=== PATIENT | female | born 1985 | race Caucasian/White ===

== ENCOUNTER 2017-08-06 00:23 | Emergency (ER) | payer MEDICAID ==
[2017-08-06 00:56] VITALS: TEMP 98.6
--- NOTE | 2017-08-06 00:58 | ED.PDOC ---
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 Abdominal Pain Onset Location: RUQ, RLQ, other - see hpi Pain Radiation: no radiation Quality: intermittent, sharpness Timing/Duration: other - 5 days Improving Factors: nothing Worsening Factors: nothing Associated Symptoms: other - see hpi Review of Systems - Review of Systems Constitutional: States: no symptoms reported EENTM: States: no symptoms reported Respiratory: States: no symptoms reported Cardiology: States: see HPI Gastrointestinal/Abdominal: States: see HPI Genitourinary: States: no symptoms reported Musculoskeletal: States: no symptoms reported All other Systems: Reviewed and Negative, No Change from Baseline Past Medical History (General) - Patient Medical History Surgical History: other - partial pancreatectomy/splenectomy - Vaccination History Hx Tetanus, Diphtheria Vaccination: Yes Hx Influenza Vaccination: Yes Hx Pneumococcal Vaccination: Yes Immunizations Up to Date: Yes - Social History Hx Alcohol Use: No Hx Substance Use: No Hx Physical Abuse: No Hx Emotional Abuse: No - Activities of Daily Living Patient Lives Alone: No - Female History Patient is a Female of Child Bearing Age (10 -59 yrs old): Yes Hx Last Menstrual Period: 07/22/17 Patient : No Family Medical History - Family History Mother Family History: Unknown Hx Family Cancer: Yes - grandma-breast Hx Family;Other: mom-fibromyalgia,lupus Physical Exam - Physical Exam General Appearance: Alert, Comfortable, No apparent distress Eyes, Ears, Nose, Throat Exam: normal ENT inspection Neck: non-tender, supple Respiratory: chest non-tender, lungs clear, normal breath sounds Cardiovascular/Chest: normal peripheral pulses, regular rate, rhythm, no murmur Peripheral Pulses: No deficit Gastrointestinal/Abdominal: normal bowel sounds, soft, no organomegaly, tenderness - right side abdomen no peritoneal signs Back Exam: no CVA tenderness, no vertebral tenderness Extremity: non-tender, normal inspection, no pedal edema, no calf tenderness Neurologic: alert, oriented x 3 Skin Exam: normal color, warm/dry Progress - Progress Progress: 08/06/17 01:05 Vital Signs - 8 hr 08/06/17 00:30 Temperature 98.6 F Pulse Rate [ 76 monitor] Respiratory 16 Rate Blood Pressure 110/67 [Left Arm] O2 Sat by Pulse 99 Oximetry - Results/Orders Results/Orders: 08/06/17 00:59 IV Care:Saline Lock per Protoc QSHIFT 08/06/17 01:00 EKG STAT Laboratory Results - last 24 hr 08/06/17 08/06/17 08/06/17 00:59 01:20 01:22 WBC 13.5 H RBC 4.80 Hgb 13.3 Hct 40.3 MCV 83.8 MCH 27.7 MCHC 33.1 RDW 15.0 H Plt Count 615 H MPV 8.5 Absolute Neuts (auto) 7.30 H Absolute Lymphs (auto) 4.20 H Absolute Monos (auto) 1.70 H Absolute Eos (auto) 0.20 Absolute Basos (auto) 0.10 Neutrophils % 53.9 Lymphocytes % 31.5 Monocytes % 12.3 H Eosinophils % 1.6 Basophils % 0.7 PT 11.6 INR 1.000 PTT (SP) 31.3 Sodium 140 Potassium 3.8 Chloride 107 Carbon Dioxide 25 Anion Gap 11.8 L BUN 11 Creatinine 0.61 BUN/Creatinine Ratio 18.0 Random Glucose 95 Serum Osmolality 278.6 Calcium 9.3 Magnesium 2.0 Total Bilirubin 0.6 Direct Bilirubin 0.1 Indirect Bilirubin 0.5 AST 15 ALT 15 Alkaline Phosphatase 94 Creatine Kinase 51 CK-MB (CK-2) 0.9 CK-MB (CK-2) % Not Reportable Troponin I < 0.02 Serum Total Protein 7.8 Albumin 4.0 Urine Color Yellow Urine Appearance Clear Urine pH 5.5 Ur Specific [place] >= 1.030 Urine Protein Negative Urine Glucose (UA) Negative Urine Ketones Negative Urine Blood Negative Urine Nitrite Negative Urine Bilirubin Negative Urine Urobilinogen 0.2 Ur Leukocyte Esterase Negative Urine RBC 0 Urine WBC 1-3 Ur Epithelial Cells 3-5 Urine Bacteria Rare Urine HCG, Qual Negative - EKG/XRAY/CT EKG: Sinus, no ST T wave changes Comments: HR-72;NSR normal ecg XRAY: chest - no acute abnormalities CT Ordered: Yes - abd/p-no acute findings Departure - Departure Clinical Impression: Palpitation Abdominal pain Qualifiers: Abdominal location: upper abdomen, unspecified Qualified Code(s): R10.10 - Upper abdominal pain, unspecified Chest pain Qualifiers: Chest pain type: unspecified Qualified Code(s): R07.9 - Chest pain, unspecified Time of Disposition: 02:42 Disposition: Discharge to Home or Self Care Condition: Good Departure Forms: ED Discharge - Pt. Copy, Patient Portal Self Enrollment Instructions: DI for Abdominal Pain-Adult, DI for Palpitations, DI for Atypical Chest Pain Additional Instructions: Follow up with your primary Md call for appointment 06 August 2017;Return to ER as needed
[2017-08-06] MEDS: SODIUM CHLORIDE 0.9% 500ML 500 ML IVS ONE (01:26)
[2017-08-06] MEDS: LACTATED RINGERS 1,000 ML IVS ONE ×2 (01:26→01:27)
--- NOTE | 2017-08-06 02:30 | RAD ---
Chest 2 view on 08/06/2017 CLINICAL INDICATION: Chest pain COMPARISON: None FINDINGS: The lungs are clear. Cardiac, hilar and mediastinal contours are within normal limits. Pulmonary vascularity is within normal limits. No bony abnormality is noted. IMPRESSION: No active disease. Electronically signed by: Saurabh Hodges 08/06/2017 2:29 AM CDT
--- NOTE | 2017-08-06 02:31 | CT ---
EXAM: CT abdomen and pelvis without contrast. INDICATION: Abdominal pain, acute. TECHNIQUE: Contiguous axial CT images of the abdomen and pelvis. Intravenous contrast: Absent. Oral contrast: Absent. DLP 1203 mGy-cm. This exam was performed according to our departmental dose-optimization program, which includes automated exposure control, adjustment of the mA and/or kV according to patient size and/or use of iterative reconstruction technique. COMPARISON: None. FINDINGS: Lower chest: Partially imaged. Lung bases: Unremarkable. Cardiac apex: Unremarkable. Solid abdominal viscera: Limited by lack of intravenous contrast. Liver: Unremarkable. Gallbladder: Unremarkable. Pancreas: Partial pancreatectomy. No definite peripancreatic inflammatory changes or peripancreatic fluid collections. Spleen: Splenectomy Adrenal glands: Unremarkable. Right kidney: No urolithiasis or hydronephrosis. Left kidney: No urolithiasis or hydronephrosis. Urinary bladder: Unremarkable. Abdominal aorta: Unremarkable. Peritoneal: Free fluid: None. Free air: None. Other: No pathologic sized lymph nodes in the upper abdomen. Bowel: Stomach: Unremarkable. Small bowel: Unremarkable. Appendix: Not uniquely identified Colon: Unremarkable. Rectum: Unremarkable. Uterus: Retroverted Bones: Unremarkable. IMPRESSION: No acute findings. Changes of a partial pancreatectomy and splenectomy with no unexpected postoperative finding. Electronically signed by: Lawrence Saravia MD 08/06/2017 2:30 AM CDT Workstation: [id number]
[2017-08-06] MEDS: HYDROCOD/APAP 5/325 (ER DISP) #3 TAB PO ONE (02:51)
[2017-08-06] MEDS: HYDROcodone 10MG/APAP 325MG 1 EA TAB PO ONE (02:51)
[2017-08-06 02:57] VITALS: BP 108/56; O2SAT 100
== END 2017-08-06 02:58 | disposition home or self-care (01) ==
LOC: ER 00:23
DX: R10.10 Upper abdominal pain, unspecified (principal); R00.2 Palpitations; R07.9 Chest pain, unspecified
CPT/HCPCS: 36415; 71046; 74176; 80048; 80076; 81001; 81025; 82550; 82553; 84484; 85025; 85610; 85730; 93005; J7120

== ENCOUNTER → 2017-10-01 | Outpatient (CLI) | payer MEDICAID, OTHER ==
--- NOTE | 2017-10-01 14:45 | CT ---
EXAM DESCRIPTION: Abdomen/Pelvis w/wo Contrast (accession [id number]), Chest w/wo Contrast (accession [id number]) CLINICAL HISTORY: 31 years Female, BENIGN NEOPLASM OF PANCREAS COMPARISON: CT abdomen and pelvis dated 08/06/2017 TECHNIQUE: Contiguous 3 mm axial images were obtained from the lung apices to the level of the proximal femora before andafter the administration of intravenous and oral contrast. Sagittal and coronal reconstructions were reviewed. FINDINGS: THORAX: 7.5 mm hypodense nodule is noted in the right thyroid lobe. Otherwise, the thyroid gland and supraclavicular region appear normal. No evidence of abnormally enlarged mediastinal, hilar or axillary lymphadenopathy. Trachea is midline and the central tracheobronchial tree is patent. The lungs are clear with no acute consolidation or hyperinflation. No nodules or masses are visualized. No evidence of pleural effusions. The heart is normal in size with no pericardial effusion. The visualized aorta is nonaneurysmal with no significant atherosclerosis. The superior vena cava is normal in size and caliber.No significant coronary artery atherosclerosis. The esophagus appears normal throughout its visualized length. LIVER: The liver demonstrates normal size and density with no intrahepatic biliary ductal dilatation or focal masses. GALLBLADDER: Grossly unremarkable. PANCREAS: Changes of distal pancreatectomy are noted. SPLEEN: Surgically absent ADRENAL GLANDS: Normal with no nodules or masses. KIDNEYS: Both kidneys enhance symmetrically with no hydronephrosis or nephrolithiasis or perinephric fluid collections. No focal masses are identified. The visualized ureters appear grossly unremarkable. STOMACH: The stomach is not well-distended . SMALL BOWEL: The small bowel loops demonstrate variable degrees of distention with no abnormal dilatation or other signs to suggest bowel obstruction. LARGE BOWEL: Mild constipation No evidence of free intraperitoneal air or fluid. RETROPERITONEUM: The abdominal aorta is nonaneurysmal with no significant atherosclerosis. The inferior vena cava is normal in size and caliber. No abnormally enlarged retroperitoneal lymph nodes are identified. URINARY BLADDER:The urinary bladder is well-distended with no gross abnormality. The uterus is retroflexed. Bilateral adnexa appear normal. ADDITIONAL FINDINGS: None. BONES: No degenerative changes are identified in the visualized bones.No evidence of osteophytic or osteoblastic lesions. IMPRESSION: Changes of distal pancreatectomy and splenectomy are noted. 7.5 mm hypodense nodule is seen in the right thyroid lobe. This exam was performed according to our departmental dose-optimization program, which includes automated exposure control, adjustment of the mA and/or kV according to patient size and/or use of iterative reconstruction technique. Electronically signed by: Efrain Armas MD 10/01/2017 2:44 PM CDT
== END ==
LOC: CT 09:16
PROVIDERS: ATTEND Internal Medicine Hematology & Oncology
DX: J45.909 Unspecified asthma, uncomplicated (principal); D13.6 Benign neoplasm of pancreas; E04.1 Nontoxic single thyroid nodule

== ENCOUNTER 2018-04-16 14:36 | Emergency (ER) | payer MEDICAID, OTHER ==
[2018-04-16 14:55] VITALS: TEMP 97.2
--- NOTE | 2018-04-16 15:20 | RAD ---
EXAM DESCRIPTION: Chest,1 View CLINICAL HISTORY: 32 years Female, near syncope COMPARISON: Previous study August 06, 2017 TECHNIQUE: AP portable chest. FINDINGS: Heart size is normal with normal pulmonary vascularity. No consolidating infiltrate. No pulmonary mass or worrisome nodule. No pneumothorax or pleural effusion. Bones are unremarkable. IMPRESSION: No acute process is identified in the chest. Electronically signed by: Yousuf Land MD 04/16/2018 3:18 PM [facility]ARE [facility]
[2018-04-16] MEDS ORDERED: MECLIZINE HCL 12.5 MG TAB PO ONE (16:10)
[2018-04-16 16:18] VITALS: O2SAT 96
[2018-04-16] MEDS ORDERED: POTASSIUM CHLORIDE ELIXIR 20 MEQ/15 ML UD PO ONE (16:32)
[2018-04-16] MEDS ORDERED: AMOXICILLIN & POT CLAVULANATE 875 MG TAB PO ONE (17:00)
--- NOTE | 2018-04-16 17:00 | ED.PDOC ---
History of Present Illness - General Chief Complaint: General Stated Complaint: hot,flushed,dizzy,cannot breathe Time Seen by Provider: 04/16/18 14:39 Source: patient Exam Limitations: no limitations - History of Present Illness Initial Comments: The patient is a 32-year-old female presenting to the emergency room secondary to a near syncopal episode while at work. The patient was standing at the bermudez register at [facility] as she had been for the last several hours when she started getting dizzy and shaky and started seeing spots. She had to sit down. She did get anxious. She did get mildly nauseated but did not throw up. She is not taking any daily medicines. She was feeling fine before that. No runny nose cough or sore throat. No previous episodes of syncope or near syncope. She does have a history of having had pancreatic cancer in the past and had a large surgery for that as well as a splenectomy. Timing/Duration: unsure, 1/2 hour Severity: moderate Improving Factors: nothing Worsening Factors: nothing Associated Symptoms: malaise, nausea/vomiting Allergies/Adverse Reactions: Allergies NO KNOWN ALLERGY Allergy (Verified 08/06/17 00:53) Home Medications: Ambulatory Orders Amoxicillin & Pot Clavulanate [Augmentin Tab] 875 mg PO BID #14 tab 04/16/18 Review of Systems - Review of Systems Constitutional: States: malaise EENTM: States: blurred vision - now resolved Respiratory: States: no symptoms reported Cardiology: States: no symptoms reported Gastrointestinal/Abdominal: States: nausea Genitourinary: States: no symptoms reported Musculoskeletal: States: no symptoms reported Skin: States: no symptoms reported Neurological: States: weakness - dizziness Endocrine: States: no symptoms reported All other Systems: No Change from Baseline Past Medical History (General) - Patient Medical History Hx Seizures: No Hx Stroke: No Hx Dementia: No Hx Asthma: Yes Hx of COPD: No Hx Cardiac Disorders: No Hx Congestive Heart Failure: No Hx Pacemaker: No Hx Hypertension: No Hx Thyroid Disease: No Hx Diabetes: No Hx Gastroesophageal Reflux: No Hx Renal Disease: No Hx Cancer: Yes - Pancreatic Hx of HIV: No Hx Hepatitis C: No Hx MRSA: No - Vaccination History Hx Tetanus, Diphtheria Vaccination: Yes Hx Influenza Vaccination: No Hx Pneumococcal Vaccination: Yes - Social History Hx Tobacco Use: Yes Hx Alcohol Use: No Hx Substance Use: No Hx Physical Abuse: No Hx Emotional Abuse: No - Female History Patient is a Female of Child Bearing Age (10 -59 yrs old): Yes Hx Last Menstrual Period: 07/22/17 Patient : No Family Medical History - Family History Mother Family History: Unknown Hx Family Cancer: Yes - grandma-breast Hx Family;Other: mom-fibromyalgia,lupus Physical Exam - Physical Exam General Appearance: Alert, Anxious, No apparent distress Eye Exam: bilateral normal Ears, Nose, Throat: hearing grossly normal, normal ENT inspection, normal phary nx Neck: non-tender, full range of motion, supple Respiratory: lungs clear, normal breath sounds, no respiratory distress, no accessory muscle use Cardiovascular/Chest: normal peripheral pulses, regular rate, rhythm, no edema Peripheral Pulses: radial,right: 2+, radial,left: 2+, dorsalis pedis,right: 2+, dorsalis pedis,left: 2+ Gastrointestinal/Abdominal: non tender, soft Rectal Exam: deferred Back Exam: no CVA tenderness, no vertebral tenderness Extremity: normal range of motion, non-tender, normal inspection, no pedal edema, normal capillary refill 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, alert, normal mood/affect - the patient is very anxious, oriented x 3 Skin Exam: normal color Comments: Vital Signs - 24 hr 04/16/18 04/16/18 04/16/18 14:51 15:03 15:04 Temperature 97.2 F L Pulse Rate [ 93 H 87 103 H Left Brachial] Respiratory 20 Rate Blood Pressure 114/76 128/83 116/75 [Left Arm] O2 Sat by Pulse 98 Oximetry 04/16/18 04/16/18 15:30 16:17 Temperature Pulse Rate [ 82 88 Left Brachial] Respiratory 20 16 Rate Blood Pressure 113/67 122/64 [Left Arm] O2 Sat by Pulse 98 96 Oximetry Progress - Progress Progress: 04/16/18 17:03 the patient is a 32-year-old female presenting to emergency room secondary to a near syncopal episode while standing at work. Tilt vital signs do show a borderline positive response by pulse. Laboratory work additionally indicates some mild dehydration. She needs to increase her fluid intake over the next 2-3 days. She does have some mild hypokalemia and was given a dose of potassium here. She needs to have this rechecked in one or 2 weeks with her primary care doctor. Given the fact that the patient no longer has a spleen and she does have a mildly elevated white blood cell count, I'm going to place the patient on Augmentin for 7 days for any infection that may be trying to surface. At this point in time there is no overt infection that can be localized. She needs to follow back up with her primary care doctor next week. ER warnings were given for any worsening. - Results/Orders Results/Orders: Laboratory Tests 04/16/18 04/16/18 04/16/18 14:53 14:55 15:11 WBC RBC Hgb Hct MCV MCH MCHC RDW Plt Count MPV Absolute Neuts (auto) Absolute Lymphs (auto) Absolute Monos (auto) Absolute Eos (auto) Absolute Basos (auto) Neutrophils % Lymphocytes % Monocytes % Eosinophils % Basophils % Sodium Potassium Chloride Carbon Dioxide Anion Gap BUN Creatinine BUN/Creatinine Ratio POC Glucose 104 Random Glucose Serum Osmolality Lactic Acid Calcium Total Bilirubin AST ALT Alkaline Phosphatase Creatine Kinase CK-MB (CK-2) CK-MB (CK-2) % Troponin I B-Natriuretic Peptide Serum Total Protein Albumin Globulin Albumin/Globulin Ratio Amylase Lipase TSH Urine Color Yellow Urine Appearance Clear Urine pH 7.0 Ur Specific [place] 1.025 Urine Protein Negative Urine Glucose (UA) Negative Urine Ketones Negative Urine Blood Moderate H Urine Nitrite Negative Urine Bilirubin Negative Urine Urobilinogen 0.2 Ur Leukocyte Esterase Negative Urine RBC 0-1 Urine WBC 0-1 Ur Epithelial Cells 1-3 Urine Bacteria 0 Urine HCG, Qual Negative 04/16/18 04/16/18 04/16/18 15:45 15:45 15:45 WBC 16.2 H RBC 4.71 Hgb 13.9 Hct 41.6 MCV 88.3 MCH 29.6 MCHC 33.5 RDW 13.3 Plt Count 597 H MPV 8.5 Absolute Neuts (auto) 10.40 H Absolute Lymphs (auto) 3.90 H Absolute Monos (auto) 1.70 H Absolute Eos (auto) 0.10 Absolute Basos (auto) 0.10 Neutrophils % 64.1 Lymphocytes % 24.0 Monocytes % 10.5 H Eosinophils % 0.8 L Basophils % 0.6 Sodium 137 Potassium 3.4 L Chloride 103 Carbon Dioxide 27 Anion Gap 10.4 L BUN 9 Creatinine 0.54 L BUN/Creatinine Ratio 16.7 POC Glucose Random Glucose 64 L Serum Osmolality 270.6 L Lactic Acid Calcium 8.9 Total Bilirubin 0.8 AST 19 ALT 24 Alkaline Phosphatase 108 Creatine Kinase 63 CK-MB (CK-2) 1.1 CK-MB (CK-2) % 1.75 Troponin I < 0.02 B-Natriuretic Peptide 21.4 Serum Total Protein 7.8 Albumin 4.0 Globulin 3.8 H Albumin/Globulin Ratio 1.1 Amylase 24 L Lipase 21 L TSH 0.51 Urine Color Urine Appearance Urine pH Ur Specific [place] Urine Protein Urine Glucose (UA) Urine Ketones Urine Blood Urine Nitrite Urine Bilirubin Urine Urobilinogen Ur Leukocyte Esterase Urine RBC Urine WBC Ur Epithelial Cells Urine Bacteria Urine HCG, Qual 04/16/18 15:45 WBC RBC Hgb Hct MCV MCH MCHC RDW Plt Count MPV Absolute Neuts (auto) Absolute Lymphs (auto) Absolute Monos (auto) Absolute Eos (auto) Absolute Basos (auto) Neutrophils % Lymphocytes % Monocytes % Eosinophils % Basophils % Sodium Potassium Chloride Carbon Dioxide Anion Gap BUN Creatinine BUN/Creatinine Ratio POC Glucose Random Glucose Serum Osmolality Lactic Acid 1.8 Calcium Total Bilirubin AST ALT Alkaline Phosphatase Creatine Kinase CK-MB (CK-2) CK-MB (CK-2) % Troponin I B-Natriuretic Peptide Serum Total Protein Albumin Globulin Albumin/Globulin Ratio Amylase Lipase TSH Urine Color Urine Appearance Urine pH Ur Specific [place] Urine Protein Urine Glucose (UA) Urine Ketones Urine Blood Urine Nitrite Urine Bilirubin Urine Urobilinogen Ur Leukocyte Esterase Urine RBC Urine WBC Ur Epithelial Cells Urine Bacteria Urine HCG, Qual chest x-ray shows no significant infiltrate or nodularity. Rapid flu is negative. EKG shows normal sinus rhythm at 84 bpm. Normal axis. Normal R-wave pr ogression. No ST segment or T-wave changes consistent with ischemia. Departure - Departure Clinical Impression: Dehydration, Postural dizziness with near syncope, Hypokalemia, Asplenia Disposition: Discharge to Home or Self Care Condition: Fair Departure Forms: ED Discharge - Pt. Copy, Patient Portal Self Enrollment Instructions: Dehydration, Adult (DC) Diet: regular diet Activity: increase activity as tolerated Referrals: Chandu Castorena MD [Primary Care Provider] - 1-2 Weeks Prescriptions: Amoxicillin & Pot Clavulanate [Augmentin Tab] 875 mg PO BID #14 tab Home Medications: Ambulatory Orders Amoxicillin & Pot Clavulanate [Augmentin Tab] 875 mg PO BID #14 tab 04/16/18 Additional Instructions: the patient is a 32-year-old female presenting to emergency room secondary to a near syncopal episode while standing at work. Tilt vital signs do show a borderline positive response by pulse. Laboratory work additionally indicates some mild dehydration. She needs to increase her fluid intake over the next 2-3 days. She does have some mild hypokalemia and was given a dose of potassium here. She needs to have this rechecked in one or 2 weeks with her primary care doctor. Given the fact that the patient no longer has a spleen and she does have a mildly elevated white blood cell count, I'm going to place the patient on Augmentin for 7 days for any infection that may be trying to surface. At this point in time there is no overt infection that can be localized. She needs to follow back up with her primary care doctor next week. ER warnings were given for any worsening. Compression stockings may also help prevent near syncopal episodes while standing.
[2018-04-16 17:17] VITALS: BP 99/66
== END 2018-04-16 17:17 | disposition home or self-care (01) ==
LOC: ER 14:36
DX: R55 Syncope and collapse (principal); E86.0 Dehydration; E87.6 Hypokalemia; R42 Dizziness and giddiness; Q89.01 Asplenia (congenital); J45.909 Unspecified asthma, uncomplicated; Z85.07 Personal history of malignant neoplasm of pancreas; Z87.891 Personal history of nicotine dependence

== ENCOUNTER → 2018-05-14 | Outpatient (CLI) | payer OTHER ==
--- NOTE | 2018-05-14 17:33 | CT ---
EXAM DESCRIPTION: CT ABDOMEN WITH CONTRAST CLINICAL HISTORY: CANCER OF DIGESTIVE SYSTEM COMPARISON: Previous CT abdomen and pelvis October 01, 2017 TECHNIQUE: CT of the abdomen is performed during IV bolus administration of routine adult dose of nonionic iodinated contrast. No oral contrast. FINDINGS: The lung bases are clear of infiltrate. Heart size is normal. Liver is normal in size and parenchymal appearance. Spleen is surgically absent as is the tail of the pancreas. Remaining body and head of the pancreas and uncinate process appear normal. No calcified stones in the gallbladder. The kidneys are unremarkable. There is no lymphadenopathy, inflammation, or free fluid observed. Lymph nodes are more prominent in the small intestinal mesentery than on previous study but still appear within normal limits. Small nodes in the retroperitoneum also appear slightly more prominent. Largest node in the small intestinal mesentery measures 6 mm short axis dimension which is within normal limits. Surgical changes in the anterior abdominal wall. No worrisome change compared to the previous study October 01, 2017. Coronal and sagittal reformatted images confirm the findings. The lower pelvis is not included on the exam. IMPRESSION: Slightly increased prominence of small intestinal and retroperitoneal lymph nodes since previous study, still considered within normal limits. Otherwise stable CT exam of the upper abdomen. This exam was performed according to our departmental dose-optimization program, which includes automated exposure control, adjustment of the mA and/or kV according to patient size and/or use of iterative reconstruction technique. Electronically signed by: Yousuf Land MD 05/14/2018 5:30 PM CDT
== END ==
LOC: CT 11:48
PROVIDERS: ATTEND Nurse Practitioner Family
DX: D49.0 Neoplasm of unspecified behavior of digestive system (principal)

== ENCOUNTER → 2018-06-05 | Outpatient (CLI) | payer OTHER | LOC: US 09:00 | PROVIDERS: ATTEND General Practice | DX: D25.9 Leiomyoma of uterus, unspecified (principal); N83.202 Unspecified ovarian cyst, left side ==

== ENCOUNTER 2018-08-17 22:43 | Emergency (ER) | payer OTHER ==
[2018-08-17] MEDS ORDERED: diazePAM 2 MG TAB PO ONE (23:07)
[2018-08-17] MEDS ORDERED: ASPIRIN TABLET 325 MG TAB PO ONE (23:08)
--- NOTE | 2018-08-17 23:27 | RAD ---
EXAM DESCRIPTION: Chest,2 Views CLINICAL HISTORY: 32 years Female chest pain COMPARISON: April 16, 2018. TECHNIQUE: Two view study of the chest was performed. FINDINGS: Cardiac size is within normal limits. Central vessels are not increased. No infiltrates or effusions seen. No consolidation. No pneumothorax. IMPRESSION: No active disease. Electronically signed by: Tiffany Hummel MD 08/17/2018 11:24 PM CDT
[2018-08-17] MEDS ORDERED: POTASSIUM CHLORIDE ELIXIR 20 MEQ/15 ML UD PO ONE (23:48)
[2018-08-18] MEDS ORDERED: AMOXICILLIN & POT CLAVULANATE 875 MG TAB PO ONE (00:41)
--- NOTE | 2018-08-18 00:47 | ED.PDOC ---
History of Present Illness - General Chief Complaint: Chest Pain/VA Stated Complaint: chest pain, SOB Time Seen by Provider: 08/17/18 22:49 Source: patient Exam Limitations: no limitations - History of Present Illness Initial Comments: the patient is a 32-year-old female presenting to the emergency room secondary to left upper and lateral chest discomfort with associated left arm discomfort. This started while she was at rest at home. The patient has had a history of a low potassium. She is also had history of pancreatic cancer and has had her spleen removed in the past. No fevers. Mild sensation of shortness of breath but no hypoxia and no tachypnea. Pain is worse with movement and reproducible with palpation over the pectoralis muscle. Timing/Duration: 1-3 hours Severity: mild Improving Factors: nothing Worsening Factors: nothing Associated Symptoms: chest pain, shortness of breath Allergies/Adverse Reactions: Allergies NO KNOWN ALLERGY Allergy (Verified 08/06/17 00:53) Home Medications: Ambulatory Orders Amoxicillin & Pot Clavulanate [Augmentin Tab] 875 mg PO BID #10 tab 08/18/18 Fluticasone Propionate (Nasal) [Fluticasone Propionate] 08/18/18 Mometasone Furoate-Formoterol [Dulera 100-5 Mcg/Act] 08/18/18 Potassium Chloride [Potassium Chloride ER] 10 meq PO DAILY #20 tab 08/18/18 Review of Systems - Review of Systems Constitutional: States: no symptoms reported EENTM: States: no symptoms reported Respiratory: States: short of breath Cardiology: States: chest pain Gastrointestinal/Abdominal: States: no symptoms reported Genitourinary: States: no symptoms reported Musculoskeletal: States: see HPI Skin: States: no symptoms reported Neurological: States: anxiety Endocrine: States: no symptoms reported All other Systems: No Change from Baseline Past Medical History (General) - Patient Medical History Hx Seizures: No Hx Stroke: No Hx Dementia: No Hx Asthma: Yes Hx of COPD: No Hx Cardiac Disorders: No Hx Congestive Heart Failure: No Hx Pacemaker: No Hx Hypertension: No Hx Thyroid Disease: No Hx Diabetes: No Hx Gastroesophageal Reflux: No Hx Renal Disease: No Hx Cancer: Yes - Pancreatic Hx of HIV: No Hx Hepatitis C: No Hx MRSA: No Surgical History: cancer surgery, other - Vaccination History Hx Tetanus, Diphtheria Vaccination: Yes Hx Influenza Vaccination: Yes Hx Pneumococcal Vaccination: Yes - Social History Hx Tobacco Use: Yes - vapes Hx Alcohol Use: No Hx Substance Use: No Hx Physical Abuse: No Hx Emotional Abuse: No - Female History Hx Last Menstrual Period: 07/22/17 Patient : No Family Medical History - Family History Mother Family History: Unknown Hx Family Cancer: Yes - grandma-breast Hx Family;Other: mom-fibromyalgia,lupus Physical Exam - Physical Exam General Appearance: Alert, Anxious Eye Exam: bilateral normal Ears, Nose, Throat: hearing grossly normal, normal ENT inspection Neck: full range of motion, supple Respiratory: lungs clear, normal breath sounds, no respiratory distress, no accessory muscle use, other - see history of present illness Cardiovascular/Chest: normal peripheral pulses, regular rate, rhythm, no edema Peripheral Pulses: radial,right: 2+, radial,left: 2+, dorsalis pedis,right: 2+, dorsalis pedis,left: 2+ Gastrointestinal/Abdominal: non tender, soft, other - no rebound or peritoneal signs. Scarring present. 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 This is most likely due to pectoralis muscle spasm causing some mild nerve impingement and radicular symptoms in the left arm. Laboratory work is reassuring with the exception of low potassium. She was given a dose of potassium here and will be written for an oral potassium supplement for the next couple of weeks. She needs to have this rechecked and followed in a couple of weeks. chest x-ray and EKG are reassuring. She also has some very mild dehydration and needs to increase her fluid intake. she needs to do stretching for the left shoulder and pectoralis muscle as well as range of motion exercises. She needs to follow back up with her primary care doctor later this week. additionally blood sugar was mildly elevated here. At her next routine blood work she should probably have a hemoglobin A1c performed. additionally the patient does have moderate leukocytosis with a white blood cell count of 19,000. I see no definitive source for any infection however the patient is going to be placed on 5 days of Augmentin in case she is having symptoms of an early pulmonary infection not yet detected, in the presence of asplenia. ER warnings were given for any worsening. 08/18/18 00:53 - Results/Orders Results/Orders: 08/17/18 23:08 Telemetry .CONTINUOUS 08/17/18 23:15 EKG STAT shows mild right axis deviation and normal sinus rhythm of [address] segment or T-wave changes indicative of acute ischemia. Normal R-wave progression. Chest x-ray shows no acute pathology. Laboratory Results - last 24 hr 08/17/18 08/17/18 08/17/18 23:08 23:24 23:24 WBC 19.0 H RBC 4.35 Hgb 13.1 Hct 38.4 MCV 88.2 MCH 30.2 MCHC 34.3 RDW 12.7 Plt Count 557 H MPV 8.6 Absolute Neuts (auto) 11.50 H Absolute Lymphs (auto) 5.00 H Absolute Monos (auto) 2.10 H Absolute Eos (auto) 0.20 Absolute Basos (auto) 0.10 Neutrophils % 60.8 Lymphocytes % 26.2 Monocytes % 11.1 H Eosinophils % 1.3 Basophils % 0.6 PT INR PTT (SP) D-Dimer, Quantitative Sodium 139 Potassium 3.1 L Chloride 107 Carbon Dioxide 22 Anion Gap 13.1 BUN 15 Creatinine 0.62 BUN/Creatinine Ratio 24.2 H Random Glucose 180 H Serum Osmolality 282.9 Calcium 8.7 Magnesium 1.9 Total Bilirubin 0.7 AST 21 ALT 17 Alkaline Phosphatase 93 Creatine Kinase 81 CK-MB (CK-2) 1.2 CK-MB (CK-2) % Not Reportable Troponin I < 0.02 B-Natriuretic Peptide 11.8 Serum Total Protein 7.4 Albumin 4.0 Globulin 3.4 Albumin/Globulin Ratio 1.2 TSH 1.35 Urine Color Urine Appearance Urine pH Ur Specific [place] Urine Protein Urine Glucose (UA) Urine Ketones Urine Blood Urine Nitrite Urine Bilirubin Urine Urobilinogen Ur Leukocyte Esterase Urine RBC Urine WBC Ur Epithelial Cells Urine Bacteria Urine HCG, Qual Negative 08/17/18 08/17/18 23:24 23:57 WBC RBC Hgb Hct MCV MCH MCHC RDW Plt Count MPV Absolute Neuts (auto) Absolute Lymphs (auto) Absolute Monos (auto) Absolute Eos (auto) Absolute Basos (auto) Neutrophils % Lymphocytes % Monocytes % Eosinophils % Basophils % PT 10.0 INR 1.00 PTT (SP) 25.5 D-Dimer, Quantitative 0.33 Sodium Potassium Chloride Carbon Dioxide Anion Gap BUN Creatinine BUN/Creatinine Ratio Random Glucose Serum Osmolality Calcium Magnesium Total Bilirubin AST ALT Alkaline Phosphatase Creatine Kinase CK-MB (CK-2) CK-MB (CK-2) % Troponin I B-Natriuretic Peptide Serum Total Protein Albumin Globulin Albumin/Globulin Ratio TSH Urine Color Yellow Urine Appearance Clear Urine pH 8.0 H Ur Specific [place] 1.020 Urine Protein Negative Urine Glucose (UA) Negative Urine Ketones Negative Urine Blood Negative Urine Nitrite Negative Urine Bilirubin Negative Urine Urobilinogen 0.2 Ur Leukocyte Esterase Negative Urine RBC 0 Urine WBC 0 Ur Epithelial Cells 1-3 Urine Bacteria Rare Urine HCG, Qual Departure - Departure Clinical Impression: Asplenia, Muscle spasm, Hypokalemia Leukocytosis Qualifiers: Leukocytosis type: unspecified Qualified Code(s): D72.829 - Elevated white blood cell count, unspecified Disposition: Discharge to Home or Self Care Condition: Fair Departure Forms: ED Discharge - Pt. Copy, Patient Portal Self Enrollment Diet: regular diet Activity: increase activity as tolerated Referrals: Chandu Castorena MD [Primary Care Provider] - 1-5 Days Prescriptions: Amoxicillin & Pot Clavulanate [Augmentin Tab] 875 mg PO BID #10 tab Potassium Chloride [Potassium Chloride ER] 10 meq PO DAILY #20 tab Home Medications: Ambulatory Orders Amoxicillin & Pot Clavulanate [Augmentin Tab] 875 mg PO BID #10 tab 08/18/18 Fluticasone Propionate (Nasal) [Fluticasone Propionate] 08/18/18 Mometasone Furoate-Formoterol [Dulera 100-5 Mcg/Act] 08/18/18 Potassium Chloride [Potassium Chloride ER] 10 meq PO DAILY #20 tab 08/18/18 Additional Instructions: the patient is a 32-year-old female presenting to emergency room with left chest discomfort and arm discomfort. This is most likely due to pectoralis muscle spasm causing some mild nerve impingement and radicular symptoms in the left arm. Laboratory work is reassuring with the exception of low potassium. She was given a dose of potassium here and will be written for an oral potassium supplement for the next couple of weeks. She needs to have this rechecked and followed in a couple of weeks. chest x-ray and EKG are reassuring. She also has some very mild dehydration and needs to increase her fluid intake. she needs to do stretching for the left shoulder and pectoralis muscle as well as range of motion exercises. She needs to follow back up with her primary care doctor later this week. additionally blood sugar was mildly elevated here. At her next routine blood work she should probably have a hemoglobin A1c performed. additionally the patient does have moderate leukocytosis with a white blood cell count of 19,000. I see no definitive source for any infection however the patient is going to be placed on 5 days of Augmentin in case she is having symptoms of an early pulmonary infection not yet detected, in the presence of asplenia. ER warnings were given for any worsening.
[2018-08-18 01:06] VITALS: BP 114/53; TEMP 98.2; O2SAT 98
== END 2018-08-18 01:06 | disposition home or self-care (01) ==
LOC: ER 22:43
DX: Q89.01 Asplenia (congenital) (principal); M62.838 Other muscle spasm; E87.6 Hypokalemia; D72.829 Elevated white blood cell count, unspecified; R07.9 Chest pain, unspecified; J45.909 Unspecified asthma, uncomplicated; F17.290 Nicotine dependence, other tobacco product, uncomplicated; Z85.07 Personal history of malignant neoplasm of pancreas